=== PATIENT | female | born 2000 | race Caucasian/White ===

== ENCOUNTER 2020-09-16 19:44 | Emergency (ER) | payer OTHER ==
[~2020-09-16] VITALS: Ht 162.6 cm; Wt 50.8 kg
[~2020-09-16 19:44] MED LIST: ZANTAC 7575 MG PO
== END 2020-09-16 23:18 | disposition home or self-care (01) ==
LOC: EMR PED 19:44
DX: J06.9 Acute upper respiratory infection, unspecified (principal)